=== PATIENT | female | born 1940 | race Caucasian/White ===

== ENCOUNTER 2018-05-05 21:24 | Emergency (ER) | payer MEDICARE ==
[~2018-05-05] VITALS: Ht 162.6 cm; Wt 81.3 kg
[~2018-05-05 21:24] MED LIST: AUGM875T PO; HYDR-3533 PO; LISI20TA PO; PRAV40TA2 PO; XARE20TA PO; ZOLP10TA3 PO
[2018-05-05 21:54] VITALS: BP 195/86; PULSE 87; RESP 20; TEMP 98.2; O2SAT 98
[2018-05-05 22:17] VITALS: BP_SYST 200; BP_SYST 202; BP_DIAS 79; BP_DIAS 95; PULSE 74; RESP 18; O2SAT 100
[2018-05-05] MEDS ORDERED: HYDR-3583 PO (22:26)
[2018-05-05] MEDS ORDERED: CHOL10008 PO (22:26)
--- NOTE | 2018-05-05 22:40 | PD ---
HPI Chief Complaint: Hypertension Time Seen by Provider: 22:09 Travel History International Travel<30 days: No Contact w/Intl Traveler<30days: No Traveled to known affect area: No History of Present Illness HPI 77-year-old female presents emergency department for evaluation of generalized tremors or shakes weakness and elevated blood pressure. Patient states followed by Dr. Rogerio Rodríguez has been taking the lisinopril as prescribed and occasionally takes an extra dose because her blood pressure was up. She states she started having shaking symptoms earlier today and took her blood pressure and found to be elevated she took an extra dose of her lisinopril when her blood pressure remained elevated she decided to come and be seen. No chest pain shortness of breath abdominal pain nausea vomiting diarrhea constipation focalized weakness difficulty with vision or headaches. Symptoms minimal, started today, context and associated signs symptoms as above. She attributes her symptoms to withdrawing from opiates because she is trying to wean herself off of them, PFSH Past Medical History Hx Anticoagulant Therapy: Yes (XARELTO) Arthritis: Yes Atrial Fibrillation: Yes Cardiovascular Problems: Yes (HTN, VENA CAVA FILTER) High Cholesterol: Yes Diabetes: No Deep Vein Thrombosis: Yes Hypertension: Yes Musculoskeletal: Yes (carpal tunnel syndrome) Menopausal: Yes Past Surgical History Body Medical Devices: VENA CAVA FILTER Hysterectomy: No Other Surgery: Yes (Vena Cava filter) Social History Alcohol Use: Yes (OCC) Tobacco Use: No Substance Use: No Allergies-Medications (Allergen,Severity, Reaction): Coded Allergies: No Known Allergies (Unverified Adverse Reaction, Unknown, 05/05/18) Reported Meds & Prescriptions Reported Meds & Active Scripts Active Reported Vitamin D3 (Cholecalciferol) 1,000 Unit Cap Unknown Dose PO DAILY Hydrocodone-Acetaminophen 10-325 mg Tab 1 Tab PO Q4H PRN Pravastatin 40 Mg Tab 40 Mg PO DAILY Zolpidem (Zolpidem Tartrate) 10 Mg Tab 10 Mg PO HS PRN Lisinopril-Hctz 20-12.5 Mg Tab 1 Tab PO DAILY Xarelto (Rivaroxaban) 20 Mg Tab 20 Mg PO DAILY Review of Systems Except as stated in HPI: all other systems reviewed are Neg Physical Exam Narrative GENERAL: Well-developed well-nourished obese female in no obvious distress SKIN: Focused skin assessment warm/dry. HEAD: Atraumatic. Normocephalic. EYES: Pupils equal and round. No scleral icterus. No injection or drainage. ENT: No nasal bleeding or discharge. Mucous membranes pink and moist. NECK: Trachea midline. No JVD. CARDIOVASCULAR: Regular rate and rhythm. No murmur appreciated. RESPIRATORY: No accessory muscle use. Clear to auscultation. Breath sounds equal bilaterally. GASTROINTESTINAL: Abdomen soft, non-tender, nondistended. Hepatic and splenic margins not palpable. MUSCULOSKELETAL: No obvious deformities. No clubbing. No cyanosis. No edema. NEUROLOGICAL: Awake and alert. Cranial nerves II through XII grossly intact and nonfocal, 5 out of 5 strength in all 4 extremities, cerebellar testing negative. Ambulates with a walker. PSYCHIATRIC: Appropriate mood and affect; insight and judgment normal. Data Data Last Documented VS Vital Signs Date Time Temp Pulse Resp B/P (MAP) Pulse Ox O2 Delivery O2 Flow Rate FiO2 05/06/18 00:54 70 18 158/78 (104) 97 05/05/18 23:42 Room Air 05/05/18 21:54 98.2 Orders Orders Electrocardiogram (05/05/18 22:34) Basic Metabolic Panel (Bmp) (05/05/18 22:34) Complete Blood Count With Diff (05/05/18 22:34) Chest, Single Ap (05/05/18 22:34) Ecg Monitoring (05/05/18 22:34) Iv Access Insert/Monitor (05/05/18 22:34) Oximetry (05/05/18 22:34) Oxygen Administration (05/05/18 22:34) Sodium Chloride 0.9% Flush (Ns Flush) (05/05/18 22:45) Oxycodone-Acetamin 5-325 Mg (Percocet (05/05/18 22:45) Ed Discharge Order (05/05/18 23:54) Labs Laboratory Tests Test 05/05/18 22:45 White Blood Count 8.5 TH/MM3 Red Blood Count 4.84 MIL/MM3 Hemoglobin 14.3 GM/DL Hematocrit 41.9 % Mean Corpuscular Volume 86.7 FL Mean Corpuscular Hemoglobin 29.6 PG Mean Corpuscular Hemoglobin Concent 34.2 % Red Cell Distribution Width 13.2 % Platelet Count 240 TH/MM3 Mean Platelet Volume 7.8 FL Neutrophils (%) (Auto) 74.5 % Lymphocytes (%) (Auto) 18.0 % Monocytes (%) (Auto) 6.2 % Eosinophils (%) (Auto) 0.8 % Basophils (%) (Auto) 0.5 % Neutrophils # (Auto) 6.4 TH/MM3 Lymphocytes # (Auto) 1.5 TH/MM3 Monocytes # (Auto) 0.5 TH/MM3 Eosinophils # (Auto) 0.1 TH/MM3 Basophils # (Auto) 0.0 TH/MM3 CBC Comment DIFF FINAL Differential Comment Blood Urea Nitrogen 16 MG/DL Creatinine 0.98 MG/DL Random Glucose 112 MG/DL Calcium Level 9.6 MG/DL Sodium Level 131 MEQ/L Potassium Level 4.0 MEQ/L Chloride Level 95 MEQ/L Carbon Dioxide Level 27.9 MEQ/L Anion Gap 8 MEQ/L Estimat Glomerular Filtration Rate 55 ML/MIN MDM Medical Decision Making Medical Screen Exam Complete: Yes Emergency Medical Condition: Yes Differential Diagnosis Elevated blood pressure, hypertensive emergency unlikely, ACS unlikely, DC unlikely, stroke unlikely, electrolyte abnormality, anxiety peer Narrative Course Patient room to the emergency department, she appears to have asymptomatic elevated blood pressure. Probably has a component of anxiety in fact when I ask her family they state that she does have a history of being very anxious. she was given a dose of oxycodone 5/325. Her blood pressure without any further intervention had near normalized. It is decreased from 205 systolic down to 158 systolic. There is no laboratory evidence of endorgan failure, she is feeling better neurologically nonfocal there is no indication further workup and management of this patient at this time. Discussed follow-up with outpatient with her primary care physician and return to ED criteria Diagnosis Primary Impression: Elevated blood pressure reading Referrals: Rogerio An MD Additional Instructions: Call Dr. An tomorrow. Take your blood pressure medication as prescribed. Disposition: 01 DISCHARGE HOME Condition: Stable Alden Cordova MD May 05, 2018 22:40
[2018-05-05] MEDS ORDERED: oxyCODONE/ACETAMINOPHEN 5 MG/325 MG TAB PO ONE (22:45)
[2018-05-05] MEDS ORDERED: SODIUM CHLORIDE 0.9% FLUSH 10 ML FLUSH IVF PRN (22:45)
[2018-05-05 22:56] VITALS: O2SAT 98
[2018-05-05 23:06] LABS: AUTOMATED NEUTROPHIL # 6.4 TH/MM3 (1.8-7.7); BASOPHIL % 0.5 % (0.0-2.0); EOSINOPHIL # 0.1 TH/MM3 (0-0.4); EOSINOPHIL % 0.8 % (0.0-4.0); HEMATOCRIT 41.9 % (35.0-46.0); HEMOGLOBIN 14.3 GM/DL (11.6-15.3); LYMPHOCYTE # 1.5 TH/MM3 (1.0-4.8); MEAN CELL VOLUME 86.7 FL (80.0-100.0); MEAN CORPUSCULAR HEMOGLOBIN 29.6 PG (27.0-34.0); MEAN CORPUSCULAR HGB CONC 34.2 % (32.0-36.0); MEAN PLATELET VOLUME 7.8 FL (7.0-11.0); MONO % 6.2 % (0.0-8.0); MONOCYTE # 0.5 TH/MM3 (0-0.9); NEUT % 74.5 % (16.0-70.0); PLATELET COUNT 240 TH/MM3 (150-450); RED BLOOD COUNT 4.84 MIL/MM3 (4.00-5.30); RED CELL DISTRIBUTION WIDTH 13.2 % (11.6-17.2); WHITE BLOOD COUNT 8.5 TH/MM3 (4.0-11.0)
--- NOTE | 2018-05-05 23:12 | RADRPT ---
EXAM DATE: 05/05/2018 10:57 PM EDT AGE/SEX: 77 years / Female INDICATIONS: Hypertension. CLINICAL DATA: This is the patient's initial encounter. Patient reports that signs and symptoms have been present for 1 day and indicates a pain score of 0/10. MEDICAL/SURGICAL HISTORY: Hypertension. . Vena Cava filter. COMPARISON: [facility], CHEST SINGLE AP, 07/29/2015. . FINDINGS: Single AP view the chest. Mildly prominent right axillary unchanged. Minimal diffuse interstitial opa city of the lungs may be due to chronic tobacco use or chronic lung disease. No focal pulmonary conso lidation or yari pulmonary edema. No evidence of pleural effusion or pneumothorax. CONCLUSION: No significant interval change. Chronic mild cardiac silhouette enlargement. No acute cardiopulmonary disease identified. Electronically signed by: Rob Zheng MD 05/05/2018 11:10 PM EDT
[2018-05-05 23:15] LABS: CALCIUM 9.6 MG/DL (8.5-10.1)
[2018-05-05 23:16] LABS: BICARBONATE 27.9 MEQ/L (21.0-32.0)
[2018-05-05 23:19] LABS: CREATININE 0.98 MG/DL (0.50-1.00)
[2018-05-05 23:20] VITALS: BP 176/81; PULSE 83; RESP 20; O2SAT 100
[2018-05-05 23:42] VITALS: BP 158/59; PULSE 72; RESP 20; O2SAT 100
[2018-05-06 00:54] VITALS: BP 158/78
--- NOTE | 2018-05-06 08:05 | EKG ---
Date Performed: 05/05/2018 Time Performed: 22:57:27 PTAGE: 77 years EKG: ATRIAL FIBRILLATION MINIMAL ST DEPRESSION ABNORMAL RHYTHM ECG Compared to prior electrocard iogram, Premature ventricular contractions no longer present. . PREVIOUS TRACING : 07/29/2015 14.33 DOCTOR: Shiva Valencia Interpretating Date/Time 05/06/2018 08:04:27
== END 2018-05-06 01:07 | disposition home or self-care (01) ==
LOC: PHED 21:24
DX: I10 Essential (primary) hypertension (principal); I48.91 Unspecified atrial fibrillation; R94.31 Abnormal electrocardiogram [ECG] [EKG]; E78.00 Pure hypercholesterolemia, unspecified; M19.90 Unspecified osteoarthritis, unspecified site; Z86.718 Personal history of other venous thrombosis and embolism; Z79.899 Other long term (current) drug therapy
CPT/HCPCS: 71045; 80048; 85025; 93005